=== PATIENT | male | born 1960 | race Caucasian/White ===

== ENCOUNTER 2017-06-15 12:59 | Inpatient (IN) | payer OTHER ==
[~2017-06-15] VITALS: Ht 172.7 cm; Wt 91.0 kg
--- NOTE | 2017-06-15 13:07 | ERA ---
ER Documentation Chief Complaint Date/Time DATE: 06/15/17 TIME: 13:07 Chief Complaint Chest pain HPI The patient is a 57-year-old female, presented to the ER because of chest pain. He was seen at [facility] ER, had initial cardiac workup, was then transferred to [facility] due to insurance. He complains of substernal chest pain at 3 AM, nonradiating, denies similar previously, no aggravating or relieving factor. He denies diaphoresis, chest pain with exertion/vomiting. He denies abdominal pain, vomiting, dysuria, diarrhea. He still smokes a pack a day, drinks socially Past medical history: CAD Past surgical history: 6 stent PCI, most recent 2 stent 2 years ago ROS All systems reviewed and are negative except as per history of present illness. Medications Home Meds Reported Medications Ticagrelor* (Brilinta*) 90 Mg Tablet, 90 MG PO Q12, TAB 06/15/17 Terazosin Hcl* (Hytrin*) 1 Mg Cap, 1 MG PO QPM, CAP 06/15/17 Ranolazine* (Ranexa*) 1,000 Mg Tab.sr.12h, 1000 MG PO Q12, TAB 06/15/17 Pantoprazole* (Pantoprazole*) 40 Mg Tablet.dr, 40 MG PO AC BREAKFAST, TAB 06/15/17 Oxycodone HCl/Acetaminophen (Percocet 5-325 mg Tablet) 1 Each Tablet, 1 EACH PO Q6 Y for SEVERE PAIN LEVEL 7-10, TAB 06/15/17 Naproxen* (Aleve*) 220 Mg Capsule, 220 MG PO BID Y for PAIN, #60 CAP 06/15/17 Metoprolol Tartrate* (Lopressor*) 50 Mg Tab, 50 MG PO BID, #60 TAB 06/15/17 Isosorbide Dinitrate* (Isosorbide Dinitrate*) 30 Mg Tablet, 30 MG PO DAILY, TAB 06/15/17 Esomeprazole Mag Trihydrate (Nexium) 20 Mg Capsule.dr, 20 MG PO AC BREAKFAST, # 30 CAP 06/15/17 Brinzolamide (Azopt) 10 Ml Drops.susp, 1 DROP BOTH EYES BID 06/15/17 Benazepril Hcl* (Benazepril Hcl*) 40 Mg Tablet, 40 MG PO DAILY, #30 TAB 06/15/17 Atorvastatin Calcium* (Atorvastatin Calcium*) 20 Mg Tablet, 20 MG PO QHS, #30 TAB 06/15/17 Aspirin* (Aspirin* EC) 81 Mg Tablet.dr, 81 MG PO DAILY, TAB 06/15/17 Amlodipine Besylate* (Amlodipine Besylate*) 10 Mg Tablet, 10 MG PO DAILY, #30 TAB 06/15/17 Allergies Allergies: Coded Allergies: Penicillins (Verified Allergy, Severe, 06/15/17) strawberry (Verified Allergy, Severe, 06/15/17) Physical Exam Vitals Vital Signs Date Time Temp Pulse Resp B/P Pulse Ox O2 Delivery O2 Flow Rate FiO2 06/15/17 13:20 98.0 52 18 158/87 99 Physical Exam Const: No acute distress. Head: Atraumatic. Eyes: Normal Conjunctiva. ENT: Normal External Ears, Nose and Mouth. Neck: Full range of motion. No meningismus. Resp: Clear to auscultation bilaterally. Cardio: Regular rate and rhythm. Abd: Soft, non distended, normal bowel sounds, non tender. Skin: No petechiae or rashes. Back: No midline or flank tenderness. Ext: No cyanosis, or edema. Neur: Awake and alert. No focal deficit Psych: Normal Mood and Affect. Result Diagram: 06/15/17 1350 06/15/17 1350 Results 24 hrs Laboratory Tests Test 06/15/17 13:50 White Blood Count 6.910^3/ul Red Blood Count 4.4210^6/ul Hemoglobin 13.5g/dl Hematocrit 38.8% Mean Corpuscular Volume 87.8fl Mean Corpuscular Hemoglobin 30.5pg Mean Corpuscular Hemoglobin Concent 34.8g/dl Red Cell Distribution Width 13.9% Platelet Count 41917^3/UL Mean Platelet Volume 11.0fl Neutrophils % 67.9% Lymphocytes % 22.0% Monocytes % 8.1% Eosinophils % 0.9% Basophils % 0.4% Nucleated Red Blood Cells % 0.0/100WBC Neutrophils # 4.710^3/ul Lymphocytes # 1.510^3/ul Monocytes # 0.610^3/ul Eosinophils # 0.110^3/ul Basophils # 0.010^3/ul Nucleated Red Blood Cells # 0.010^3/ul Sodium Level 139mmol/L Potassium Level 3.6mmol/L Chloride Level 112mmol/L Carbon Dioxide Level 24mmol/L Anion Gap 7 Blood Urea Nitrogen 13mg/dl Creatinine 0.79mg/dl Glucose Level 104mg/dl Calcium Level 8.6mg/dl Troponin I < 0.012ng/ml Current Medications Medications (Trade) Dose Ordered Sig/Woody Route PRN Reason Start Time Stop Time Status Last Admin Dose Admin IV Flush (NS 3 ml) 3 ml PER PROTOCOL IV 06/15/17 14:30 Ondansetron HCl (Zofran Inj) 4 mg Q6H PRN IV NAUSEA AND/OR VOMITING 06/15/17 14:30 Acetaminophen (Tylenol Tab) 650 mg Q6H PRN PO PAIN LEVEL 1-3 OR FEVER 06/15/17 14:30 Acetaminophen (Tylenol Supp) 650 mg Q6H PRN [place] PAIN LEVEL 1-3 OR FEVER 06/15/17 14:30 Morphine Sulfate (morphine) 2 mg Q4H PRN IV SEVERE PAIN LEVEL 7-10 06/15/17 14:30 Docusate Sodium (Colace) 100 mg Q12H PRN PO CONSTIPATION 06/15/17 14:30 Famotidine (Pepcid) 20 mg Q12 PO 06/15/17 21:00 Enoxaparin Sodium (Lovenox) 40 mg DAILY SC 06/16/17 09:00 Aspirin (Aspirin) 81 mg DAILY PO 06/16/17 09:00 Nitroglycerin (Nitroglycerin (Sl Tab) 0.4 Mg) 1 tab Q5M PRN SL ANGINA 06/15/17 14:30 Hydralazine HCl (Apresoline) 10 mg Q6H PRN IV SBP>160 06/15/17 14:30 Nicotine (Nicoderm 14 Mg/ 24hr) 1 patch DAILY TRANSDERM 06/16/17 09:00 Procedures/MDM MEDICAL MAKING DECISION: The patient is a 57-year-old female with multiple cardiac risk factors,, presenting with acute chest pain that is concerning for acute ACS. He was treated with aspirin, nitroglycerin, morphine prior to arrival and is currently chest pain-free. The differential diagnoses considered include but are not limited to acute coronary syndrome, acute myocardial infarction, pericarditis, pulmonary embolism , aortic dissection, pneumonia, pleural effusion, pneumothorax, GERD, chest wall pain. Departure Diagnosis: Primary Impression: Chest pain Condition: Stable Comments I discussed the findings with the patient. I discussed the patient with the on- call hospitalist Dr. Vazquez at 1:45 PM. who was made aware of the lab, the treatment, the patient condition. The patient is admitted to telemetry MEG CASTILLO MD Jun 15, 2017 13:07
[2017-06-15 14:00] LABS: BASOPHILS % 0.4 % (0.0-2.0); EOSINOPHILS # 0.1 10^3/ul (0.0-0.5); EOSINOPHILS % 0.9 % (0.0-7.0); HEMATOCRIT 38.8 % (37.0-47.0); HEMOGLOBIN 13.5 g/dl (12.0-16.0); LYMPHOCYTES # 1.5 10^3/ul (0.8-2.9); MEAN CORPUSCULAR HEMOGLOBIN 30.5 pg (29.0-33.0); MEAN CORPUSCULAR HGB CONC 34.8 g/dl (32.0-37.0); MEAN CORPUSCULAR VOLUME 87.8 fl (82.0-101.0); MONOCYTE # 0.6 10^3/ul (0.3-0.9); MONOCYTES % 8.1 % (0.0-11.0); NEUTROPHIL # 4.7 10^3/ul (1.6-7.5); NEUTROPHILS % 67.9 % (39.0-77.0); PLATELET COUNT 169 10^3/UL (140-415); RED BLOOD COUNT 4.42 10^6/ul (4.20-5.40); RED CELL DISTRIBUTION WIDTH 13.9 % (11.5-14.5); WHITE BLOOD COUNT 6.9 10^3/ul (4.8-10.8)
[2017-06-15 14:26] LABS: ANION GAP 7 (8-16); BLOOD UREA NITROGEN 13 mg/dl (7-20); CALCIUM 8.6 mg/dl (8.4-10.2); CARBON DIOXIDE 24 mmol/L (21-31); CHLORIDE 112 mmol/L (97-110); CREATININE 0.79 mg/dl (0.44-1.00); GLUCOSE 104 mg/dl (70-220); POTASSIUM 3.6 mmol/L (3.5-5.1); SODIUM 139 mmol/L (135-144)
[2017-06-15] MEDS ORDERED: hydrALAzine 20 MG INJ IV PRN (14:30)
[2017-06-15] MEDS ORDERED: DOCUSATE SODIUM 100 MG CAP PO PRN (14:30)
[2017-06-15] MEDS ORDERED: ONDANSETRON 4 MG INJ IV PRN (14:30)
[2017-06-15] MEDS ORDERED: NITROGLYCERIN (SL) 0.4 MG TAB SL PRN (14:30)
[2017-06-15] MEDS ORDERED: ACETAMINOPHEN 650 MG SUPP PR PRN (14:30)
[2017-06-15] MEDS ORDERED: NACL 0.9% 3 ML SYG IV SCH (14:30)
--- NOTE | 2017-06-15 14:35 | HP ---
Date/Time of Note Date/Time of Note DATE: 06/15/17 TIME: 14:35 Assessment/Plan VTE Prophylaxis VTE Prophylaxis Intervention: LMWH Lines/Catheters IV Catheter Type (from Nrs): Saline Lock Assessment/Plan Chief Complaint/Hosp Course 57-year-old Somali male with a past medical history of current everyday smoking, coronary artery disease, PTCA with multiple stents placed in the past came in for evaluation of chest pain started yesterday at 3 PM. 1.Chest Pain, rule out acute coronary syndrome. Initial troponin negative. 12 Lead EKG without acute ST or T-wave changes. Differential diagnoses remain broad with exact etiology still unclear. PE is very unlikely given the normal oxygenation and complete lack of risk factors. Dissection is unlikely as the patient has no history of uncontrolled HTN and symmetric blood pressures. If w/u for above life threatening causes negative will further expand differential to include GI, infectious, musculoskeletal and other causes of chest pain. Plan: Serial EKG Stat ECHO if not done within 6 mos Follow cardiac enzymes Morphine for pain control Continue ASA, NTG SL PRN, O2 if indicated Consider cardiology consult depending on above workup Get lipid profile,A1C and TSH levels in am. 2. Coronary artery disease with PCI/Multiple stents. -Resume ASA/Statin/BPmeds/Brilinta 3. Essential hypertension -Resume BB with HR parameters 2/2 bradycardia. Resume ACEI. Hold CCB for now. -F/u cards recs on BP meds 4. Hypercholesteremia -Resume statin 5. History of cardiac arrest. 6. Nicotine abuse. -Cessation advised. Will also provide nicotine patch. 7. Sinus bradycardia, asymptomatic. -Avoid AV bassam agents for now until evaluated by cardiology. Will put parameters on beta-blockers. -Follow-up with cardiology recommendations. Prophylaxis: Lovenox/Pepcid Plan: Patient will be admitted to telemetry. He will be started on a low- cholesterol, low-fat diet. Patient will be kept Full code. Rest of the management depend on clinical course and recommendation from risk and insurance consultant. Patient was seen in collaboration with Dr. Welch. Approximately 60 minutes was spent on this history and physical. Problems: HPI/ROS Admit Date/Time Admit Date/Time Hx of Present Illness This is a 57-year-old Somali male with a past medical history of coronary artery disease, cardiac arrest, PCI with history of stent 6 times with most recent stent 2 which was 2 years ago, hypothyroidism, hypercholesterolemia, current everyday nicotine abuse, aspirin, hypertension, who initially presented to [facility] for evaluation of chest pain which started yesterday evening at 3 PM. Patient reported substernal chest pain with radiation to upper back and is exacerbated by movement and associated with diaphoresis and dizziness. Patient denied any palpitation, nausea, vomiting, headache, abdominal pain, fever, chills, numbness, tingling, or any focal deficits. His usual software systems analyst is Dr. Sixto Figueroa at [place]. She was transferred to [facility] for insurance purposes. Patient had negative troponin and negative EKG from outside hospital. However, EKG showed bradycardia with a HR 54 BPM.CBC, BMP within acceptable range. Vital signs with mildly elevated blood pressure 158/87. Otherwise unremarkable. Patient was admitted to rule out acute coronary syndrome. ROS 12 point review of system was assessed and is negative other than what is mentioned in the HPI. PMH/Family/Social Past Medical History See HPI Past Surgical History See HPI Social History Current everyday smoking anywhere from 15 cigarettes to 1 pack per day. Denies alcohol or illicit drug use. Smoking Status: Current every day smoker Exam/Review of Systems Vital Signs Vitals Vital Signs Date Time Temp Pulse Resp B/P Pulse Ox O2 Delivery O2 Flow Rate FiO2 06/15/17 13:20 98.0 52 18 158/87 99 Exam Exam General: Well developed,adequately built Somali male, not in any acute distress . HEENT: Normocephalic, Atraumatic, No laceration or hematoma; Eyes: PEERL, Conjunctiva clear, Anicteric sclera Neck: Supple without any lymphadenopathy, nontender, no JVD, no carotid bruits, trachea midline, no thyromegaly Cardiac: S1, S2 auscultated, regular rhythm and rate, no mumurs or gallop Pulmonary: Normal respiratory effort. Chest clear to auscultation bilaterally, no adventitious breath sounds GI: Abdomen normal to inspection. Soft, non tender, non- distended, no masses, no rebound tenderness or guarding. Bowel sounds active on all four quadrants Genitourinary: Deferred Extremities: No cyanosis, clubbing, or edema. Pulses [2+] bilaterally. Full ROM on all four extremities. No focal weakness appreciated. Neurologic: Alert to person, place, time, and situation. Affect appropriate, intact sensation. Skin: Clean,dry, and intact. No ecchymosis, no rashes, or lesions Labs Result Diagram: 06/16/1736 06/16/17 0636 JUAN GUEVARA NP Jun 15, 2017 14:35
[2017-06-15 14:41] LABS: TROPONIN-I < 0.012 ng/ml (0.00-0.12)
[2017-06-15] MEDS ORDERED: ASPI-664 PO (15:02)
[2017-06-15] MEDS ORDERED: ATOR20TA38 PO (15:02)
[2017-06-15] MEDS ORDERED: AMLO-147 PO (15:02)
[2017-06-15] MEDS ORDERED: BENA40TA41 PO (15:03)
[2017-06-15] MEDS ORDERED: AZOP1OP10 BOTH EYES (15:04)
[2017-06-15] MEDS ORDERED: ISOS30TA18 PO (15:05)
[2017-06-15] MEDS ORDERED: ESOM20CA PO (15:05)
[2017-06-15] MEDS ORDERED: METO-429 PO (15:11)
[2017-06-15] MEDS ORDERED: NAPR220C2 PO (15:12)
[2017-06-15] MEDS ORDERED: PANT40TA4 PO (15:13)
[2017-06-15] MEDS ORDERED: OXYC-279 PO (15:13)
[2017-06-15] MEDS ORDERED: RANO10002 PO (15:13)
[2017-06-15] MEDS ORDERED: TERA1CAP39 PO (15:14)
[2017-06-15] MEDS ORDERED: TICA90TA PO (15:14)
[2017-06-15 15:58] VITALS: TEMP 98
[2017-06-15] MEDS ORDERED: ALBUTEROL/IPRATROPIUM (NEB) 3 ML AMP HHN PRN (16:30)
[2017-06-15 16:50] VITALS: BP 154/80; PULSE 53; RESP 17; Ht 172.7 cm; Wt 91.0 kg
[2017-06-15 18:20] VITALS: PULSE 46
[2017-06-15] MEDS: morphine 2 MG INJ IV PRN ×2 (18:22→22:38)
--- NOTE | 2017-06-15 19:33 | CONS ---
DATE OF ADMISSION: 06/15/2017 DATE OF CONSULTATION: 06/15/2017 REASON FOR CONSULTATION: Chest pain, assess for acute coronary syndrome. REQUESTING PHYSICIAN: Sommer Guevara from the hospitalist service. HISTORY OF PRESENT ILLNESS: Mr. Knox is a 57-year-old male with history of coronary artery di sease, status post multiple prior stents, 7 per family, with most recent being 3 years prior, histor y of cardiac arrest, history of myocardial infarction, who states that he had been with his family a nd they were enjoying a festive time and after having 2 days of this, felt dizziness, lightheadednes s and associated substernal chest pain described as a pressure-like sensation. Upon arrival in the emergency department, temperature 98, blood pressure 158/87, pulse 52, respirations 18, saturating 9 9%. The patient's labs revealed white cell count 6.9, hemoglobin 10.5, platelet count 169. Sodium 139, potassium 3.6, creatinine 0.79, BUN 13. Troponin negative. Patient has no chest x-ray for my revie w at this time. The patient's electrocardiogram revealed sinus bradycardia, rate of 48 with a borde rline left axis deviation and diffuse nonspecific ST and T wave abnormalities. The patient subsequently has been admitted to the floor, where he has had some intermittent chest pa in. The patient monitored on telemetry with heart rates mainly in the 50s at this time. The patien t's most recent blood pressure remains elevated at 148/82. PAST MEDICAL HISTORY: As above in HPI. MEDICATIONS CURRENTLY IN HOSPITAL: 1. Lovenox subQ daily. 2. Aspirin 81 mg daily. 3. Nicotine patch 1 patch daily. 4. Norvasc 10 mg daily. 5. Potassium 40 mg daily. 6. Imdur 30 mg daily. 7. Pepcid 20 mg q.12. 8. Metoprolol 50 mg p.o. b.i.d. 9. Ranexa 1000 mg q.12. 10. Terazosin 1 mg at bedtime. 11. Brilinta 90 mg q.12. 12. Aspirin 81 mg daily. 13. Azopt eyedrops. 14. Hytrin 1 mg at bedtime. ALLERGIES: PENICILLIN AND STRAWBERRIES. SOCIAL HISTORY: Positive tobacco, social ETOH. No illicit drug use. FAMILY HISTORY: No history of sudden cardiac or early CAD. REVIEW OF SYSTEMS: As in HPI. CONSTITUTIONAL: No fevers, chills. PULMONARY: No current shortness of breath. CARDIOVASCULAR: Positive chest pain. GASTROINTESTINAL: No vomiting. GENITOURINARY: No hematuria. MUSCULOSKELETAL: Degenerative joint disease. PSYCHIATRIC: No documented history of depression. NEUROLOGIC: No documented history of CVA. ENDOCRINE: No documented history of diabetes mellitus. PHYSICAL EXAMINATION: VITAL SIGNS: Temperature of 98, blood pressure most recent 148/82, pulse in the 50s, saturating 99% , respirations 18. GENERAL: The patient is alert, awake, complaining of intermittent chest pain. NECK: JVP approximately 9 cm of water. CHEST: Fair movement throughout with mildly decreased breath sounds at bases bilaterally. HEART: Bradycardic, regular rhythm, normal S1, S2, I/ systolic murmur, nondisplaced PMI. ABDOMEN: Positive bowel sounds, soft. EXTREMITIES: No pitting edema, 1+ pulses bilaterally posterior tibial. LABORATORIES: As above in HPI, most recently with no further labs for my review at this time. IMAGING STUDIES: No further imaging studies for my review at this time. ECG: As above in HPI. No further electrocardiograms for my review at this time. IMPRESSION: 1. Chest pain, assess for acute coronary syndrome. 2. Abnormal electrocardiogram with diffuse nonspecific ST and T wave abnormalities, assess for acut e coronary syndrome. 3. Hypertension, uncontrolled. 4. History of percutaneous transluminal coronary angioplasty and stent placement. 5. Dizziness in the setting of bradycardia. 6. Bradycardia in the setting of beta heriberto therapy. 7. Dyslipidemia. 8. History of cardiac arrest with unknown ejection fraction. 9. History of myocardial infarction. RECOMMENDATIONS: 1. At this time, would maintain the patient on telemetry monitoring to follow rhythm and rate contr ol closely. 2. Would continue the patient's baseline aspirin and Brilinta for stent patency. 3. Continue the patient's current Norvasc and benazepril for blood pressure control but will decrea se the patient's dose of metoprolol given bradyarrhythmias at this time, and possibly need to hold i t. 4. We will continue the patient's Terazosin at this time, but also may be leading to dizziness. 5. Continue the patient's antianginal medications with Imdur and Ranexa at this time. 6. Complete the patient's rule out for myocardial infarction to ensure that the patient's constella tion of systems are not due to any acute coronary syndrome such as an acute myocardial infarction. 7. Check a 2D echocardiogram to further assess patient's ejection fraction, wall motion and any martinez or valve abnormalities, and will consider stress testing in this patient if he does rule out for lucas cardial infarction to assess for the possibility of significant obstructive coronary artery disease or ischemia lending to the patient's symptoms of chest pain and subsequent admit to the hospital. Thank you for allowing me to take part in the care of this patient. I will continue to follow him katharine andrew closely with you with recommendations to be made as the patient progresses through his inpatient hospital clinical course. Dictated By: REENA FARIAS/JHONNY Conf#: [id number] DID#: [id number] CC: SOMMER GUEVARA MILL CONTR[employer]LLER;*End*
[2017-06-15 19:49] LABS: CREATINE KINASE 48 IU/L (23-200)
[2017-06-15 20:03] LABS: CK-MB 0.51 ng/ml (0.0-2.4); TROPONIN-I < 0.012 ng/ml (0.00-0.12)
[2017-06-15 20:12] VITALS: PULSE 54
[2017-06-15 20:54] VITALS: BP 141/78; RESP 20
[2017-06-15] MEDS ORDERED: METOPROLOL 50 MG TAB PO SCH (21:00)
[2017-06-15] MEDS: RANOLAZINE (SR) 500 MG TAB PO SCH (21:15)
[2017-06-15] MEDS: TICAGRELOR 90 MG TABLET PO SCH (21:18)
[2017-06-15] MEDS: BRINZOLAMIDE 1% 10ML OPH BOTH EYES SCH (21:35)
[2017-06-15] MEDS: ATORVASTATIN 20 MG TAB PO SCH (21:35)
[2017-06-15] MEDS: TERAZOSIN 1 MG CAP PO SCH (21:36)
[2017-06-15] MEDS: FAMOTIDINE 20 MG TAB PO SCH (21:36)
[2017-06-15] MEDS: METOPROLOL 25 MG TAB PO SCH (21:36)
[2017-06-16] VITALS (13 sets, daily range): BP systolic 105–145; BP diastolic 50–71; PULSE 40–72; RESP 16–20
[2017-06-16 02:08] LABS: TROPONIN-I 0.015 ng/ml (0.00-0.12)
[2017-06-16 02:09] LABS: CK-MB 0.41 ng/ml (0.0-2.4)
[2017-06-16 07:17] LABS: BASOPHILS % 0.5 % (0.0-2.0); EOSINOPHILS # 0.1 10^3/ul (0.0-0.5); EOSINOPHILS % 1.5 % (0.0-7.0); HEMATOCRIT 42.3 % (42.0-52.0); HEMOGLOBIN 14.7 g/dl (14.0-18.0); LYMPHOCYTES # 2.1 10^3/ul (0.8-2.9); LYMPHOCYTES % 24.1 % (15.0-51.0); MEAN CORPUSCULAR HEMOGLOBIN 30.2 pg (29.0-33.0); MEAN CORPUSCULAR HGB CONC 34.8 g/dl (32.0-37.0); MEAN PLATELET VOLUME 11.2 fl (7.4-10.4); MONOCYTE # 0.8 10^3/ul (0.3-0.9); MONOCYTES % 9.3 % (0.0-11.0); NEUTROPHIL # 5.5 10^3/ul (1.6-7.5); NEUTROPHILS % 64.2 % (39.0-77.0); PLATELET COUNT 179 10^3/UL (140-415); RED BLOOD COUNT 4.86 10^6/ul (4.70-6.10); RED CELL DISTRIBUTION WIDTH 13.9 % (11.5-14.5); WHITE BLOOD COUNT 8.5 10^3/ul (4.8-10.8)
[2017-06-16 07:45] LABS: ALBUMIN 3.2 g/dl (3.3-4.9); ALBUMIN/GLOBULIN RATIO 1.14; BILIRUBIN,INDIRECT 1.6 mg/dl (0-1.1); BILIRUBIN,TOTAL 1.6 mg/dl (0.2-1.3); CALCIUM 8.9 mg/dl (8.4-10.2); CREATININE 0.93 mg/dl (0.61-1.24); MAGNESIUM 1.6 mg/dl (1.7-2.5); PHOSPHORUS 3.4 mg/dl (2.5-4.9); POTASSIUM 3.8 mmol/L (3.5-5.1)
[2017-06-16 07:58] LABS: T3 UPTAKE 36.7 % (23.5-40.5)
[2017-06-16 08:11] LABS: THYROID STIMULATING HORMONE 2.89 MIU/L (0.465-4.680)
[2017-06-16 08:54] LABS: CHOL/HDL RATIO 3.5 RATIO
[2017-06-16] MEDS: ISOSORBIDE MONONITRATE(SR)30 MG TAB PO SCH (08:55)
[2017-06-16] MEDS: ASPIRIN 81 MG TAB PO SCH (08:55)
[2017-06-16] MEDS: FAMOTIDINE 20 MG TAB PO SCH ×2 (08:55→20:47)
[2017-06-16] MEDS: BRINZOLAMIDE 1% 10ML OPH BOTH EYES SCH ×2 (08:56→20:44)
[2017-06-16] MEDS: BENAZEPRIL 40 MG TAB PO SCH (08:56)
[2017-06-16] MEDS: ENOXAPARIN 40 MG/0.4 ML SYG SC SCH (08:59)
[2017-06-16] MEDS: RANOLAZINE (SR) 500 MG TAB PO SCH ×2 (09:00→20:48)
[2017-06-16] MEDS: NICOTINE (14 MG/24 HR) PATCH TRANSDERM SCH (09:00)
[2017-06-16] MEDS ORDERED: AMLODIPINE 10 MG TAB PO SCH (09:00)
[2017-06-16] MEDS: METOPROLOL 25 MG TAB PO SCH ×2 (09:00→20:46)
[2017-06-16] MEDS: TICAGRELOR 90 MG TABLET PO SCH ×2 (09:05→20:51)
--- NOTE | 2017-06-16 09:24 | CONS ---
Date/Time of Note Date/Time of Note DATE: 06/16/17 TIME: 09:23 Assessment/Plan Assessment/Plan Additional Assessment/Plan 1. Chest pain, assess for acute coronary syndrome- no CP now, Stress test planned today 2. Abnormal electrocardiogram with diffuse nonspecific ST and T wave abnormalities, assess for acute coronary syndrome. 3. Hypertension, uncontrolled - but better, hank add Rx as needed 4. History of percutaneous transluminal coronary angioplasty and stent placement. 5. Dizziness in the setting of bradycardia - HR stable now - no assoc low BP. 6. Bradycardia in the setting of beta heriberto therapy. 7. Dyslipidemia. 8. History of cardiac arrest with unknown ejection fraction. 9. History of myocardial infarction. Consultation Date/Type/Reason Admit Date/Time Jun 15, 2017 at 13:51 Initial Consult Date 24 HR Interval Summary Free Text/Dictation no CP now, Stress test planned today ROS: No fever, no chills, no nausea, no vomiting, no diarrhea/constipation No recent weight changes No chest pain, no PND, no orthopnea No dizziness, blurred vision No thirst, no heat or cold intolerance Exam/Review of Systems Vital Signs Vitals Vital Signs Date Time Temp Pulse Resp B/P Pulse Ox O2 Delivery O2 Flow Rate FiO2 06/16/17 08:17 98.3 51 18 145/69 97 06/15/17 16:50 Room Air Intake and Output 06/15/17 06/15/17 06/16/17 15:00 23:00 07:00 Intake Total 500 ml Balance 500 ml Exam General: WN/WD/NAD, AOx 3 HEENT: Unicetric/atraumatic/EOMI (follow commands) NECK: JVD elevated, no thyromegaly Lymph: no lymphadenopathy HEART: regular with no S3, II/ systolic murmur at apex LUNGS: Coarse sounds ABD: soft, NT, ND, +BS : Intact Neuro: non focal SKIN: chronic changes EXT: trace edema Results Result Diagram: 06/16/17 0636 06/16/17 0636 Results 24 hrs Laboratory Tests Test 06/15/17 13:50 06/15/17 19:00 06/16/17 01:05 06/16/17 06:36 White Blood Count 6.9 8.5 # Red Blood Count 4.42 4.86 Hemoglobin 13.5 14.7 Hematocrit 38.8 42.3 Mean Corpuscular Volume 87.8 87.0 Mean Corpuscular Hemoglobin 30.5 30.2 Mean Corpuscular Hemoglobin Concent 34.8 34.8 Red Cell Distribution Width 13.9 13.9 Platelet Count 169 179 Mean Platelet Volume 11.0 H 11.2 H Neutrophils % 67.9 64.2 Lymphocytes % 22.0 24.1 Monocytes % 8.1 9.3 Eosinophils % 0.9 1.5 Basophils % 0.4 0.5 Nucleated Red Blood Cells % 0.0 0.0 Neutrophils # 4.7 5.5 Lymphocytes # 1.5 2.1 Monocytes # 0.6 0.8 Eosinophils # 0.1 0.1 Basophils # 0.0 0.0 Nucleated Red Blood Cells # 0.0 0.0 Sodium Level 139 139 Potassium Level 3.6 3.8 Chloride Level 112 H 107 Carbon Dioxide Level 24 29 Anion Gap 7 L 7 L Blood Urea Nitrogen 13 14 Creatinine 0.79 0.93 Glucose Level 104 93 Calcium Level 8.6 8.9 Troponin I < 0.012 < 0.012 0.015 Creatine Kinase 48 41 Creatine Kinase Index 1.1 1.0 Creatinine Kinase MB (Mass) 0.51 0.41 Hemoglobin A1c 5.2 Phosphorus Level 3.4 Magnesium Level 1.6 L Total Bilirubin 1.6 H Direct Bilirubin 0.00 Indirect Bilirubin 1.6 H Aspartate Amino Transf (AST/SGOT) 21 Alanine Aminotransferase (ALT/SGPT) 37 Alkaline Phosphatase 62 Total Protein 6.0 L Albumin 3.2 L Globulin 2.80 Albumin/Globulin Ratio 1.14 Triglycerides Level 160 H Cholesterol Level 139 LDL Cholesterol, Calculated 68 HDL Cholesterol 39 Cholesterol/HDL Ratio 3.5 Thyroid Stimulating Hormone (TSH) 2.890 Free Thyroxine Index 2.86 Thyroxine (T4) 7.8 Triiodothyronine (T3) Uptake 36.7 Medications Medications Current Medications Ondansetron HCl (Zofran Inj) 4 mg Q6H PRN IV NAUSEA AND/OR VOMITING; Start 06/15/17 at 14:30 Acetaminophen (Tylenol Tab) 650 mg Q6H PRN PO PAIN LEVEL 1-3 OR FEVER; Start 06/15/17 at 14:30 Acetaminophen (Tylenol Supp) 650 mg Q6H PRN HI PAIN LEVEL 1-3 OR FEVER; Start 06/15/17 at 14:30 Morphine Sulfate (morphine) 2 mg Q4H PRN IV SEVERE PAIN LEVEL 7-10 Last administered on 06/15/17 22:38; Admin Dose 2 MG; Start 06/15/17 at 14:30 Docusate Sodium (Colace) 100 mg Q12H PRN PO CONSTIPATION; Start 06/15/17 at 14: 30 Famotidine (Pepcid) 20 mg Q12 PO Last administered on 06/16/17 08:55; Admin Dose 20 MG; Start 06/15/17 at 21:00 Enoxaparin Sodium (Lovenox) 40 mg DAILY SC Last administered on 06/16/17 08: 59; Admin Dose 40 MG; Start 06/16/17 at 09:00 Aspirin (Aspirin) 81 mg DAILY PO Last administered on 06/16/17 08:55; Admin Dose 81 MG; Start 06/16/17 at 09:00 Nitroglycerin (Nitroglycerin (Sl Tab) 0.4 Mg) 1 tab Q5M PRN SL ANGINA; Start 06/15/17 at 14:30 Hydralazine HCl (Apresoline) 10 mg Q6H PRN IV SBP>160; Start 06/15/17 at 14:30 Nicotine (Nicoderm 14 Mg/ 24hr) 1 patch DAILY TRANSDERM ; Start 06/16/17 at 09: 00 Amlodipine Besylate (Norvasc) 10 mg DAILY PO ; Start 06/16/17 at 09:00 Atorvastatin Calcium (Lipitor) 20 mg QHS PO Last administered on 06/15/17 21: 35; Admin Dose 20 MG; Start 06/15/17 at 21:00 Benazepril HCl (Lotensin) 40 mg DAILY PO Last administered on 06/16/17 08:56 ; Admin Dose 40 MG; Start 06/16/17 at 09:00 Brinzolamide (Azopt) 1 drop BID BOTH EYES Last administered on 06/16/17 08:56 ; Admin Dose 1 DROP; Start 06/15/17 at 21:00 Isosorbide Mononitrate (Imdur) 30 mg DAILY PO Last administered on 06/16/17 08:55; Admin Dose 30 MG; Start 06/16/17 at 09:00 Ranolazine (Ranexa) 1,000 mg Q12 PO Last administered on 06/16/17 09:00; Admin Dose 1,000 MG; Start 06/15/17 at 21:00 Terazosin HCl (Hytrin) 1 mg QPM PO Last administered on 06/15/17 21:36; Admin Dose 1 MG; Start 06/15/17 at 21:00 Ticagrelor (Brilinta) 90 mg Q12 PO Last administered on 06/16/17 09:05; Admin Dose 90 MG; Start 06/15/17 at 21:00 Metoprolol Tartrate (Lopressor) 25 mg BID PO Last administered on 06/15/17 21: 36; Admin Dose 25 MG; Start 06/15/17 at 21:00 CITLALLI JOYCE MD Jun 16, 2017 09:24
[2017-06-16] MEDS ORDERED: REGADENOSON 0.4 MG/5 ML SYG ONE (10:15)
--- NOTE | 2017-06-16 10:16 | PN ---
Date/Time of Note Date/Time of Note DATE: 06/16/17 TIME: 10:12 Assessment/Plan VTE Prophylaxis VTE Prophylaxis Intervention: LMWH Lines/Catheters IV Catheter Type (from [facility]): [place] Urinary Cath still in place: No Assessment/Plan Chief Complaint/Hosp Course 57-year-old [place]ron[place] male with a past medical history of current everyday smoking, coronary artery disease, PTCA with multiple stents placed in the past came in for evaluation of chest pain started yesterday at 3 PM. 1.Chest Pain, rule out acute coronary syndrome. Serial EKG and cardiac enzymes negative for acute ischemic events. Differential diagnoses remain broad with exact etiology still unclear. PE is very unlikely given the normal oxygenation and complete lack of risk factors. Dissection is unlikely as the patient has no history of uncontrolled HTN and symmetric blood pressures. If w/u for above life threatening causes negative will further expand differential to include GI, infectious, musculoskeletal and other causes of chest pain. Plan: Cardiology on board and plan for nuclear medicine stress test today. Follow up echocardiogram findings. Morphine for pain control Continue ASA, NTG SL PRN, O2 if indicated 2. Coronary artery disease with PCI/Multiple stents. -on ASA/Statin/BPmeds/Brilinta 3. Essential hypertension -On CCB/CHASITY inhibitor/low-dose beta-blockers. Metoprolol has been titrated down to 25 mg twice daily with holding parameters for heart rate. -F/u cards recs on BP meds 4. Hypercholesteremia. Lipid panel noted. -on statin 5. History of cardiac arrest. -With 2D echocardiogram. 6. Nicotine abuse. -Cessation advised. Continue nicotine patch. 7. Sinus bradycardia, asymptomatic. With improved heart rate. -Follow-up with cardiology recommendations. Heart rate parameters has been placed for beta-blockers. Prophylaxis: Lovenox/Pepcid Plan: Follow-up with nuclear medicine stress test results. Patient was seen in collaboration with Dr. Welch. Problems: Subjective 24 Hr Interval Summary Free Text/Dictation Patient is for nuclear medicine stress test today. Patient did not have any further chest pain. EKG with sinus bradycardia with lowest heart rate 40 bpm. Exam/Review of Systems Vital Signs Vitals Vital Signs Date Time Temp Pulse Resp B/P Pulse Ox O2 Delivery O2 Flow Rate FiO2 06/16/17 08:17 98.3 51 18 145/69 97 06/15/17 16:50 Room Air Intake and Output 06/15/17 06/15/17 06/16/17 15:00 23:00 07:00 Intake Total 500 ml Balance 500 ml Exam General: Well developed,adequately built [place]ron[place] male, not in any acute distress . HEENT: Normocephalic, Atraumatic, No laceration or hematoma; Eyes: PEERL, Conjunctiva clear, Anicteric sclera Neck: Supple without any lymphadenopathy, nontender, no JVD, no carotid bruits, trachea midline, no thyromegaly Cardiac: S1, S2 auscultated, regular rhythm and rate, no mumurs or gallop Pulmonary: Normal respiratory effort. Chest clear to auscultation bilaterally, no adventitious breath sounds GI: Abdomen normal to inspection. Soft, non tender, non- distended, no masses, no rebound tenderness or guarding. Bowel sounds active on all four quadrants Genitourinary: Deferred Extremities: No cyanosis, clubbing, or edema. Pulses [2+] bilaterally. Full ROM on all four extremities. No focal weakness appreciated. Neurologic: Alert to person, place, time, and situation. Affect appropriate, intact sensation. Skin: Clean,dry, and intact. No ecchymosis, no rashes, or lesions Results Result Diagram: 06/16/17 0636 06/16/17 0636 Results 24 hrs Laboratory Tests Test 06/15/17 13:50 06/15/17 19:00 06/16/17 01:05 06/16/17 06:36 White Blood Count 6.9 8.5 # Red Blood Count 4.42 4.86 Hemoglobin 13.5 14.7 Hematocrit 38.8 42.3 Mean Corpuscular Volume 87.8 87.0 Mean Corpuscular Hemoglobin 30.5 30.2 Mean Corpuscular Hemoglobin Concent 34.8 34.8 Red Cell Distribution Width 13.9 13.9 Platelet Count 169 179 Mean Platelet Volume 11.0 H 11.2 H Neutrophils % 67.9 64.2 Lymphocytes % 22.0 24.1 Monocytes % 8.1 9.3 Eosinophils % 0.9 1.5 Basophils % 0.4 0.5 Nucleated Red Blood Cells % 0.0 0.0 Neutrophils # 4.7 5.5 Lymphocytes # 1.5 2.1 Monocytes # 0.6 0.8 Eosinophils # 0.1 0.1 Basophils # 0.0 0.0 Nucleated Red Blood Cells # 0.0 0.0 Sodium Level 139 139 Potassium Level 3.6 3.8 Chloride Level 112 H 107 Carbon Dioxide Level 24 29 Anion Gap 7 L 7 L Blood Urea Nitrogen 13 14 Creatinine 0.79 0.93 Glucose Level 104 93 Calcium Level 8.6 8.9 Troponin I < 0.012 < 0.012 0.015 Creatine Kinase 48 41 Creatine Kinase Index 1.1 1.0 Creatinine Kinase MB (Mass) 0.51 0.41 Hemoglobin A1c 5.2 Phosphorus Level 3.4 Magnesium Level 1.6 L Total Bilirubin 1.6 H Direct Bilirubin 0.00 Indirect Bilirubin 1.6 H Aspartate Amino Transf (AST/SGOT) 21 Alanine Aminotransferase (ALT/SGPT) 37 Alkaline Phosphatase 62 Total Protein 6.0 L Albumin 3.2 L Globulin 2.80 Albumin/Globulin Ratio 1.14 Triglycerides Level 160 H Cholesterol Level 139 LDL Cholesterol, Calculated 68 HDL Cholesterol 39 Cholesterol/HDL Ratio 3.5 Thyroid Stimulating Hormone (TSH) 2.890 Free Thyroxine Index 2.86 Thyroxine (T4) 7.8 Triiodothyronine (T3) Uptake 36.7 Medications Medications Current Medications Ondansetron HCl (Zofran Inj) 4 mg Q6H PRN IV NAUSEA AND/OR VOMITING; Start 06/15/17 at 14:30 Acetaminophen (Tylenol Tab) 650 mg Q6H PRN PO PAIN LEVEL 1-3 OR FEVER; Start 06/15/17 at 14:30 Acetaminophen (Tylenol Supp) 650 mg Q6H PRN [place] PAIN LEVEL 1-3 OR FEVER; Start 06/15/17 at 14:30 Morphine Sulfate (morphine) 2 mg Q4H PRN IV SEVERE PAIN LEVEL 7-10 Last administered on 06/15/17 22:38; Admin Dose 2 MG; Start 06/15/17 at 14:30 Docusate Sodium (Colace) 100 mg Q12H PRN PO CONSTIPATION; Start 06/15/17 at 14: 30 Famotidine (Pepcid) 20 mg Q12 PO Last administered on 06/16/17 08:55; Admin Dose 20 MG; Start 06/15/17 at 21:00 Enoxaparin Sodium (Lovenox) 40 mg DAILY SC Last administered on 06/16/17 08: 59; Admin Dose 40 MG; Start 06/16/17 at 09:00 Aspirin (Aspirin) 81 mg DAILY PO Last administered on 06/16/17 08:55; Admin Dose 81 MG; Start 06/16/17 at 09:00 Nitroglycerin (Nitroglycerin (Sl Tab) 0.4 Mg) 1 tab Q5M PRN SL ANGINA; Start 06/15/17 at 14:30 Hydralazine HCl (Apresoline) 10 mg Q6H PRN IV SBP>160; Start 06/15/17 at 14:30 Nicotine (Nicoderm 14 Mg/ 24hr) 1 patch DAILY TRANSDERM ; Start 06/16/17 at 09: 00 Amlodipine Besylate (Norvasc) 10 mg DAILY PO ; Start 06/16/17 at 09:00 Atorvastatin Calcium (Lipitor) 20 mg QHS PO Last administered on 06/15/17 21: 35; Admin Dose 20 MG; Start 06/15/17 at 21:00 Benazepril HCl (Lotensin) 40 mg DAILY PO Last administered on 06/16/17 08:56 ; Admin Dose 40 MG; Start 06/16/17 at 09:00 Brinzolamide (Azopt) 1 drop BID BOTH EYES Last administered on 06/16/17 08:56 ; Admin Dose 1 DROP; Start 06/15/17 at 21:00 Isosorbide Mononitrate (Imdur) 30 mg DAILY PO Last administered on 06/16/17 08:55; Admin Dose 30 MG; Start 06/16/17 at 09:00 Ranolazine (Ranexa) 1,000 mg Q12 PO Last administered on 06/16/17 09:00; Admin Dose 1,000 MG; Start 06/15/17 at 21:00 Terazosin HCl (Hytrin) 1 mg QPM PO Last administered on 06/15/17 21:36; Admin Dose 1 MG; Start 06/15/17 at 21:00 Ticagrelor (Brilinta) 90 mg Q12 PO Last administered on 06/16/17 09:05; Admin Dose 90 MG; Start 06/15/17 at 21:00 Metoprolol Tartrate (Lopressor) 25 mg BID PO Last administered on 06/15/17 21: 36; Admin Dose 25 MG; Start 06/15/17 at 21:00 JUAN GUEVARA NP Jun 16, 2017 10:16
--- NOTE | 2017-06-16 12:43 | RADRPT ---
PROCEDURE: Lexiscan myocardial perfusion study CLINICAL INDICATION: 57 -year-old patient complaining of chest pain. TECHNIQUE: Lexiscan 0.4 mg intravenously separate acquisition gated myocardial perfusion SPECT usi ng Tc 99m Myoview 31.1 mCi intravenously at stress and Tc-99m Myoview, 10.9 mCi intravenously at res t was performed using the rest/stress sequence. Poststress Myoview SPECT images were obtained in th e supine position. COMPARISON: No prior studies. FINDINGS: Perfusion images reveal a small size mild in degree predominantly nonreversible perfusion defect in the inferior and inferolateral smith. Lexiscan post stress gated SPECT images demonstrate no wall motion abnormalities. IMPRESSION: 1. The type and distribution of the scintigraphic abnormalities are most consistent with a small pr edominantly nonreversible perfusion defect in the inferior and inferolateral smith. 2. No wall motion abnormalities. 3. The left ventricle ejection fraction at stress is 60%. A call report was made to Dr. Bundy at 12: 39 p.m. on June 16, 2017. RPTAT: HH .Ritika Modoy MD, MD Date Time Electronically viewed and signed by .Ritika Moody MD, on 06/16/2017 12:42 .L/
[2017-06-16] MEDS: morphine 2 MG INJ IV PRN (12:49)
--- NOTE | 2017-06-16 14:59 | ECORPT ---
DATE OF SERVICE: REFERRING PHYSICIAN: Dr. Vazquez. REASON FOR TESTING: Chest pain. DESCRIPTION OF TEST: The patient was brought into the heart station. He had successful Lexiscan in jection. Blood pressure was 110/64, . He tolerated the injection. The imaging portion will b e dictated separately. Dictated By: CITLALLI JOYCE MD ML/JHONNY Conf#: [id number] DID#: [id number]
[2017-06-16] MEDS: TERAZOSIN 1 MG CAP PO SCH (20:45)
[2017-06-16] MEDS: ATORVASTATIN 20 MG TAB PO SCH (20:46)
[2017-06-16] MEDS: ACETAMINOPHEN 325 MG TAB PO PRN (20:48)
[2017-06-17] VITALS (10 sets, daily range): BP systolic 102–108; BP diastolic 53–61; PULSE 46–54; RESP 16–19
[2017-06-17 07:20] LABS: BASOPHILS % 0.6 % (0.0-2.0); EOSINOPHILS # 0.1 10^3/ul (0.0-0.5); EOSINOPHILS % 1.3 % (0.0-7.0); HEMOGLOBIN 13.5 g/dl (14.0-18.0); LYMPHOCYTES # 1.8 10^3/ul (0.8-2.9); LYMPHOCYTES % 25.6 % (15.0-51.0); MEAN CORPUSCULAR HEMOGLOBIN 29.3 pg (29.0-33.0); MEAN CORPUSCULAR HGB CONC 33.8 g/dl (32.0-37.0); MEAN CORPUSCULAR VOLUME 86.8 fl (82.0-101.0); MEAN PLATELET VOLUME 11.5 fl (7.4-10.4); MONOCYTE # 0.6 10^3/ul (0.3-0.9); MONOCYTES % 8.6 % (0.0-11.0); NEUTROPHIL # 4.6 10^3/ul (1.6-7.5); NEUTROPHILS % 63.6 % (39.0-77.0); PLATELET COUNT 165 10^3/UL (140-415); RED BLOOD COUNT 4.61 10^6/ul (4.70-6.10); RED CELL DISTRIBUTION WIDTH 14.1 % (11.5-14.5); WHITE BLOOD COUNT 7.2 10^3/ul (4.8-10.8)
[2017-06-17 07:46] LABS: CALCIUM 8.7 mg/dl (8.4-10.2); CREATININE 0.92 mg/dl (0.61-1.24); MAGNESIUM 1.7 mg/dl (1.7-2.5); POTASSIUM 3.8 mmol/L (3.5-5.1)
[2017-06-17] MEDS: BRINZOLAMIDE 1% 10ML OPH BOTH EYES SCH (08:30)
[2017-06-17] MEDS: METOPROLOL 25 MG TAB PO SCH (08:32)
[2017-06-17] MEDS: ASPIRIN 81 MG TAB PO SCH (08:32)
[2017-06-17] MEDS: ISOSORBIDE MONONITRATE(SR)30 MG TAB PO SCH (08:33)
[2017-06-17] MEDS: BENAZEPRIL 40 MG TAB PO SCH (08:33)
[2017-06-17] MEDS: FAMOTIDINE 20 MG TAB PO SCH (08:33)
[2017-06-17] MEDS: RANOLAZINE (SR) 500 MG TAB PO SCH (08:34)
[2017-06-17] MEDS: NICOTINE (14 MG/24 HR) PATCH TRANSDERM SCH (08:34)
[2017-06-17] MEDS: TICAGRELOR 90 MG TABLET PO SCH (08:42)
[2017-06-17] MEDS: ENOXAPARIN 40 MG/0.4 ML SYG SC SCH (08:42)
[2017-06-17] MEDS: ACETAMINOPHEN 325 MG TAB PO PRN (11:10)
--- NOTE | 2017-06-17 14:56 | PDOCDIS ---
Discharge Instructions DIAGNOSIS Discharge Diagnosis Chest pain. ACS ruled out. CONDITION Patient Condition: Stable HOME CARE INSTRUCTIONS: Diet Instructions: Low Fat /CholesterolSpecial Diet: Cardiac diet OTHER ORDERS: Other Orders: 1. Take medications as per prescription. 2. 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 3. Low-cholesterol diet. 4. Resume activities as tolerated. 5. Please go to the nearest emergency room or call 911 if you have any chest pain or significant shortness of breath. ROBYN AGUILLON NP Jun 17, 2017 14:56
--- NOTE | 2017-06-17 15:12 | CONS ---
Date/Time of Note Date/Time of Note DATE: 06/17/17 TIME: 15:01 Assessment/Plan Assessment/Plan Chief Complaint/Hosp Course IMPRESSION: 1. Chest pain, assess for acute coronary syndrome.-negative trop x 3/NO ischemia by lexiscan with NL EF 2. Abnormal electrocardiogram with diffuse nonspecific ST and T wave abnormalities, assess for acute coronary syndrome. 3. Hypertension, uncontrolled. 4. History of percutaneous transluminal coronary angioplasty and stent placement. 5. Dizziness in the setting of bradycardia. 6. Bradycardia-ongoing to 40-50's with stable BP 7. Dyslipidemia. 8. History of cardiac arrest with unknown ejection fraction. 9. History of myocardial infarction. Recc: -Tele -Serial ecg's -Continue asa/brilinta/statin -Continue iosrdil/benazepril/Terazosin/Ranexa -D/C BB -Follow HR closely and BP and if BP remains stable ok from d/c from cardiac standpoint Problems: Consultation Date/Type/Reason Admit Date/Time Jun 15, 2017 at 13:51 Initial Consult Date 06/15/2017 Type of Consultation: cardiology Reason for Consultation Chest pain Referring Provider: ROBYN AGUILLON NP Exam/Review of Systems Vital Signs Vitals Vital Signs Date Time Temp Pulse Resp B/P Pulse Ox O2 Delivery O2 Flow Rate FiO2 06/17/17 12:29 52 06/17/17 11:08 98.2 19 108/57 96 06/15/17 16:50 Room Air Intake and Output 06/16/17 06/16/17 06/17/17 15:00 23:00 07:00 Intake Total 1000 ml 500 ml Balance 1000 ml 500 ml Exam Review of Systems: CONSTITUTIONAL: No fevers, chills. PULMONARY: No sob CARDIOVASCULAR: No chest pain/palpitations GASTROINTESTINAL: No nausea/vomiting. GENITOURINARY: No hematuria/dysuria. MUSCULOSKELETAL: No myagias/arthalgias. PSYCHIATRIC: The patient denies depression. NEUROLOGIC: No weakness Constitutional: alert Psych: no complaints Head: normocephalic ENMT: mucosa pink and moist Neck: jvd, supple Respiratory: diminished breath sounds (at bases/B) Cardiovascular: regular rate and rhythm Gastrointestinal: non-tender, soft Musculoskeletal: muscle tone (normal) Extremities: edema (none) Neurological: other (No focal deficits) Results Result Diagram: 06/17/1732 06/17/17 0632 Results 24 hrs Laboratory Tests Test 06/17/17 06:32 White Blood Count 7.2 Red Blood Count 4.61 L Hemoglobin 13.5 L Hematocrit 40.0 L Mean Corpuscular Volume 86.8 Mean Corpuscular Hemoglobin 29.3 Mean Corpuscular Hemoglobin Concent 33.8 Red Cell Distribution Width 14.1 Platelet Count 165 Mean Platelet Volume 11.5 H Neutrophils % 63.6 Lymphocytes % 25.6 Monocytes % 8.6 Eosinophils % 1.3 Basophils % 0.6 Nucleated Red Blood Cells % 0.0 Neutrophils # 4.6 Lymphocytes # 1.8 Monocytes # 0.6 Eosinophils # 0.1 Basophils # 0.0 Nucleated Red Blood Cells # 0.0 Sodium Level 138 Potassium Level 3.8 Chloride Level 108 Carbon Dioxide Level 25 Anion Gap 9 Blood Urea Nitrogen 17 Creatinine 0.92 Glucose Level 95 Calcium Level 8.7 Magnesium Level 1.7 Medications Medications Current Medications Ondansetron HCl (Zofran Inj) 4 mg Q6H PRN IV NAUSEA AND/OR VOMITING; Start 06/15/17 at 14:30 Acetaminophen (Tylenol Tab) 650 mg Q6H PRN PO PAIN LEVEL 1-3 OR FEVER Last administered on 06/17/17 11:10; Admin Dose 650 MG; Start 06/15/17 at 14:30 Acetaminophen (Tylenol Supp) 650 mg Q6H PRN [place] PAIN LEVEL 1-3 OR FEVER; Start 06/15/17 at 14:30 Morphine Sulfate (morphine) 2 mg Q4H PRN IV SEVERE PAIN LEVEL 7-10 Last administered on 06/16/17 12:49; Admin Dose 2 MG; Start 06/15/17 at 14:30 Docusate Sodium (Colace) 100 mg Q12H PRN PO CONSTIPATION; Start 06/15/17 at 14: 30 Famotidine (Pepcid) 20 mg Q12 PO Last administered on 06/17/17 08:33; Admin Dose 20 MG; Start 06/15/17 at 21:00 Enoxaparin Sodium (Lovenox) 40 mg DAILY SC Last administered on 06/17/17 08: 42; Admin Dose 40 MG; Start 06/16/17 at 09:00 Aspirin (Aspirin) 81 mg DAILY PO Last administered on 06/17/17 08:32; Admin Dose 81 MG; Start 06/16/17 at 09:00 Nitroglycerin (Nitroglycerin (Sl Tab) 0.4 Mg) 1 tab Q5M PRN SL ANGINA; Start 06/15/17 at 14:30 Hydralazine HCl (Apresoline) 10 mg Q6H PRN IV SBP>160; Start 06/15/17 at 14:30 Nicotine (Nicoderm 14 Mg/ 24hr) 1 patch DAILY TRANSDERM Last administered on 08:34; Admin Dose 1 PATCH; Start 06/16/17 at 09:00 Amlodipine Besylate (Norvasc) 10 mg DAILY PO ; Start 06/16/17 at 09:00 Atorvastatin Calcium (Lipitor) 20 mg QHS PO Last administered on 06/16/17 20: 46; Admin Dose 20 MG; Start 06/15/17 at 21:00 Benazepril HCl (Lotensin) 40 mg DAILY PO Last administered on 06/17/17 08:33 ; Admin Dose 40 MG; Start 06/16/17 at 09:00 Brinzolamide (Azopt) 1 drop BID BOTH EYES Last administered on 06/17/17 08:30 ; Admin Dose 1 DROP; Start 06/15/17 at 21:00 Isosorbide Mononitrate (Imdur) 30 mg DAILY PO Last administered on 06/17/17 08:33; Admin Dose 30 MG; Start 06/16/17 at 09:00 Ranolazine (Ranexa) 1,000 mg Q12 PO Last administered on 06/17/17 08:34; Admin Dose 1,000 MG; Start 06/15/17 at 21:00 Terazosin HCl (Hytrin) 1 mg QPM PO Last administered on 06/16/17 20:45; Admin Dose 1 MG; Start 06/15/17 at 21:00 Ticagrelor (Brilinta) 90 mg Q12 PO Last administered on 06/17/17 08:42; Admin Dose 90 MG; Start 06/15/17 at 21:00 Metoprolol Tartrate (Lopressor) 25 mg BID PO Last administered on 06/15/17 21: 36; Admin Dose 25 MG; Start 06/15/17 at 21:00 REENA ZAIDI Jun 17, 2017 15:12
--- NOTE | 2017-06-17 19:34 | RADRPT ---
Echocardiogram Report Patient Name: YESENIA SCHILLING Gender: Female Date: 1960 Study Date: 16-Jun-2017 [employer] Pelletizer: KENNETH BURNETT Location: 509 Ref. Physician: JUAN GUEVARA Quality: Good Procedures: Transthoracic echocardiogram with complete 2D, M-Mode, and doppler examination. Indications: Chest Pain. 2D/M Mode Doppler Measurement Value Normal Ranges Measurement Value Normal Ranges AoR Diam MM 2.8 cm DARY Vmax 2.4 cm2 LA/Ao MM 1.3 DARY VTI 2.4 cm2 LA Dimen MM 3.5 cm AV Peak Floyd 1.2 m/sec LVIDd 2D 5.2 3.5 - 5.6 cm AV Peak PG 6.2 mmHg LVIDs 2D 3.4 2.1 - 4.1 cm LVOT Peak Floyd 0.9 m/sec LVPWd 2D 1.1 0.6 - 1.1 cm LVOT Peak PG 3.1 mmHg IVSd 2D 1.1 0.6 - 1.1 cm MV E Peak Floyd 0.7 m/sec EDV 2D 131.0 cm3 MV A Peak Floyd 0.5 m/sec ESV 2D 38.2 cm3 MV E/A 1.4 LVOT Diam 2.1 cm MV Decel Time 207 msec MV Decel Stanton 3 MV E/A 1.4 TR Peak Floyd 1.5 m/sec TR Peak PG 9.4 mmHg Findings Left Ventricle: Normal left ventricular systolic function. Normal left ventricular cavity size. Normal left ventricular wall thickness. Ejection fraction is visually estimated at 55 %. Right Ventricle: Normal right ventricular size. Normal right ventricular systolic function. Left Atrium: The left atrium is normal in size. Right Atrium: The right atrium is normal in size. Mitral Valve: Normal appearance of the mitral valve. Normal appearance and function of the mitral valve with trace physiologic regurgitation. Trace mitral regurgitation. Aortic Valve: Normal appearance of the aortic valve. No significant aortic stenosis or insufficiency. Tricuspid Valve: Normal appearance and function of the tricuspid valve with trace physiologic regurgitation. Normal right ventricular systolic pressure. Pulmonic Valve: Normal pulmonic valve appearance. Pericardium: Normal pericardium with no significant pericardial effusion. Aorta: Normal aortic root. IVC: Normal size and normal respiratory collapse consistent with normal right atrial pressure. Conclusions 1.Normal left ventricular systolic function. Normal left ventricular cavity size. Normal left ventricular wall thickness. Ejection fraction is visually estimated at 55 %. 2.Normal appearance of the mitral valve. Normal appearance and function of the mitral valve with trace physiologic regurgitation. Trace mitral regurgitation. 3.Normal appearance and function of the tricuspid valve with trace physiologic regurgitation. Normal right ventricular systolic pressure. Electronically Signed By: Fili Dyer 17-Jun-2017 19:33:00 -0700 Patient Name: YESENIA SCHILLING Study Date: 16-Jun-[id number]
--- NOTE | 2017-06-17 22:51 | DS ---
DATE OF ADMISSION: 06/15/2017 DATE OF DISCHARGE: 06/17/2017 FINAL DIAGNOSES: 1. Chest pain, acute coronary syndrome ruled out. 2. Coronary artery disease. 3. Essential hypertension. 4. Sinus bradycardia. 5. Dyslipidemia. 6. History of cardiac arrest. 7. Nicotine use. CONSULTANTS: 1. Fili Dyer MD, cardiology. 2. Michael Bundy MD, cardiology. HOSPITAL COURSE: This is a 57-year-old [place] male with past medical history of CAD, prior history of cardiac arrest, PCI with coronary artery stenting, hypothyroidism, dyslipidemia, nicotine use, and hypertension, who initially presented to [facility] for evaluation of chest pain. This started on the evening of the day prior to the hospitalization. The patient reported substernal chest pain with radiation to his upper back and exacerbated by movement and associated with diaphoresis and dizziness. There was no reported palpitations, nausea, vomiting, headache, abdominal pain, fever, chills, numbness, tingling or any focal deficits. He was transferred to [facility] for insurance reasons. The patient was admitted to inpatient telemetry floor. Cardiology consult was obtained. The patient's serial troponins remained negative. The patient underwent a nuclear medicine cardiac stress test that was negative for any reversible perfusion defects with a left ventricular ejection fraction of 60 percent. The patient was ruled out for any underlying acute coronary syndrome. The patient was maintained on aspirin, Brilinta and statins for his underlying history of CAD and multiple stents in the past. The patient was maintained on antihypertensives for his underlying essential hypertension. However, the patient's beta heriberto dosing was decreased because of significant bradycardia, which had to be discontinued because of persistent bradycardia. The patient has underlying dyslipidemia. The patient was maintained on statins. The patient is a current nicotine user. The patient was advised on the importance of quitting the use of nicotine. The patient was provided with a nicotine patch. The patient had a stable hospital course. The patient was cleared by cardiology to be discharged home. The patient denied any complaints at the time of his discharge. DISCHARGE DISPOSITION/PLAN: The patient will be discharged home today. The patient was instructed to take medications as per prescription. 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 Sixto Figueroa in 1 week. The patient was instructed to follow a low cholesterol diet. He was instructed to resume activities as tolerated. He was instructed to go to the nearest emergency room or call 911 if he has any chest pain or has any significant shortness of breath. The patient verbalized understanding of his discharge instructions. DISCHARGE CONDITION: Stable. DISCHARGE MEDICATIONS: 1. Aspirin 81 mg p.o. daily. 2. Brilinta 90 mg p.o. q.12 hours. 3. Atorvastatin 20 mg p.o. nightly. 4. Benazepril 40 mg p.o. daily. 5. Azopt 1 drop to both eyes b.i.d. 6. Isosorbide dinitrate 30 mg p.o. daily. 7. Protonix 40 mg p.o. before breakfast. 8. Ranexa 1000 mg p.o. q.12 hours. 9. Hytrin 1 mg p.o. nightly. PERTINENT LABS AND DIAGNOSTIC DATA: 1. Nuclear medicine cardiac stress test. The type and distribution of the scintigraphic abnormalities are most consistent with small predominantly nonreversible perfusion defect in the inferior and inferolateral leads. No wall motion abnormalities. Left ventricular ejection fraction at stress is 60 percent. 2. Latest CBC, WBC 7.2, hemoglobin 13.5, hematocrit 40.2, platelet count 165. 3. BMP, sodium 138, potassium 3.8, chloride 108, bicarbonate 25, anion gap 9, BUN 17, creatinine 0.9, glucose 95, calcium 8.7, magnesium 1.7. 4. Fasting lipid panel, triglycerides 160, total cholesterol 139, LDL 68. HDL 39. 5. Hemoglobin A1c 5.2. At this time I would like to thank all the consultants for seeing the patient and providing clinical recommendations. The case and management of this patient was fully discussed with Dr. Welch. Approximately 35 minutes was spent on coordinating the discharge on this patient. Dictated By: Kevin Shen NP /bill/linda /Document#: [id number] STEPHANIE
--- NOTE | 2017-06-19 15:55 | RADRPT ---
Vent Rate: 51 bpm RR Interval: 0 msec AR Interval: 180 msec QRS Duration: 96 msec QT Interval: 472 msec QTC Interval: 435 msec P-R-T Ideal: 65 - -19 - 47 degrees Sinus bradycardia Otherwise normal ECG Electronically Signed By: Tomasz Rowland [id number]
== END 2017-06-17 17:18 | disposition home or self-care (01) | DRG 313 ==
LOC: EDSEX 12:59 → E/R 12:59 → TEL 13:51
PROVIDERS: ADMIT Hospitalist; ATTEND Hospitalist
DX: R07.9 Chest pain, unspecified (principal); I25.2 Old myocardial infarction; Z86.74 Personal history of sudden cardiac arrest; I25.10 Atherosclerotic heart disease of native coronary artery without angina pectoris; I10 Essential (primary) hypertension; E78.5 Hyperlipidemia, unspecified; R00.1 Bradycardia, unspecified; F17.210 Nicotine dependence, cigarettes, uncomplicated; E03.9 Hypothyroidism, unspecified; R42 Dizziness and giddiness; Z79.02 Long term (current) use of antithrombotics/antiplatelets; Z79.82 Long term (current) use of aspirin; Z95.5 Presence of coronary angioplasty implant and graft
CPT/HCPCS: 36415; 78452; 80048; 80053; 80061; 82550; 82553; 82652; 83036; 83735; 84100; 84436; 84443; 84479; 84484; 85025; 93005; 93017; 93306; A9500; A9505; J1650; J2270; J2785